=== PATIENT | female | born 1965 | race Caucasian/White ===

== ENCOUNTER 2023-09-05 16:15 | Outpatient (RCR) | payer OTHER, SELFPAY | END 2024-01-03 23:59 | disposition home or self-care (01) | PROVIDERS: Visit Provider Family Medicine | DX: M54.16 Radiculopathy, lumbar region (principal); S76.312A Strain of muscle, fascia and tendon of the posterior muscle group at thigh level, left thigh, initial encounter; Z51.89 Encounter for other specified aftercare | CPT/HCPCS: 97110; 97140; 97161 ==

== ENCOUNTER 2023-12-16 13:42 | Outpatient (CLI) | payer OTHER, SELFPAY ==
--- NOTE | 2023-12-16 14:00 | MM_ITS ---
Patient: YENIFER LAWRENCE Facility:?[facility] Patient ID:?[id number] Site Patient ID:?[id number]. Site :?[id number] Study:?XRay-Breast Bilateral 3D W/CAD-12/16/2023 2:07:28 PM Ordering Physician:Matti December Final Report: BILATERAL SCREENING MAMMOGRAM WITH COMPUTER-AIDED DETECTION AND TOMOSYNTHESIS TECHNIQUE: CC and MLO views were obtained. These mammographic images have been obtained using full-field digital technique. These mammographic images were interpreted with the benefit of computer-aided detection. Breast Tomosynthesis was used in this interpretation. COMPARISON FILM: 01/09/22, 06/20/20, 01/13/19. FINDINGS: The breasts are heterogeneously dense, which may obscure small masses IMPRESSION: There is no radiographic evidence for malignancy. ASSESSMENT: BI-RADS Category 1: Negative RECOMMENDATION: Routine screening mammogram in 1 year. A lay language report of this examination will be provided to the patient. Shahbaz Long M.D. Diagnostic Radiologist [email or web address] Transcribed: 11:18 [email or web address] casillas/Dictated by: Shahbaz Long MD @ 12/17/2023 9:05:00 AM Signed by:?Shahbaz Long MD @12/17/2023 12:07:23 PM (Electronic Signature)
== END 2023-12-16 13:43 | disposition home or self-care (01) ==
LOC: MAMMO 13:43
PROVIDERS: Visit Provider Physician Assistant
DX: Z12.31 Encounter for screening mammogram for malignant neoplasm of breast (principal); R92.2 Inconclusive mammogram
CPT/HCPCS: 77063; 77067

== ENCOUNTER 2024-04-06 07:30 | Outpatient (CLI) | payer OTHER, SELFPAY ==
--- OUTSIDE RECORDS SUMMARY | 2024-04-07 23:40 | XMS_ITS | Clinical Summary ---
Author Organization [facility] Address [place], [place] [address] Care Team Providers Care Fabric Worker Leader Name Role Phone FavianPatrica shaffer CHRISTOPHER Primary Care Provider +1- [phone] Allergies No known active allergies Medications Medication Sig Dispensed Refills Start Date End Date Status polyethylene glycol-electrolyte (GOLYTELY) 236-22.74-6.74 -5.86 gram suspensionIndication s:Encounter for screening colonoscopy Drink 3 liters (3/4 of bottle) the day before colonoscopy and 1 liter (remaining 1/4 of bottle) 6 hours prior to colonoscopy appointment. 4000 mL 03/07/2022 Active polyethylene glycol-electrolyte (GOLYTELY) 236-22.74-6.74 -5.86 gram suspensionIndication s:Adenomatous polyp of colon, unspecified part of colon Drink 2 liters the day before colonoscopy and 2 liters 6 hours before colonoscopy appointment 4000 mL 04/13/2024 Active Active Problems Problem Noted Date Diagnosed Date Adenomatous colon polyp 05/14/2017 Overview: Colonoscopy 04/2017 polyps repeat in 3 years Colonoscopy 06/2020 serrated adenoma tissue at the site of a previously resected polyp, recommend repeat colonoscopy in 6 months Encounters Date Type Department Care Team Description 02/06/2024 Telephone [facility] [address] [place] [address] Darell West MD Screening from Last 3 Months Social History Tobacco Use Types Packs/Day Years Used Date Smoking Tobacco: Never Smokeless Tobacco: Never Tobacco Cessation:Counseling Given: Yes Alcohol Use Standard Drinks/Week Comments Yes 2 (1 standard drink = 0.6 oz pur e alcohol) Social Connections Answer Date Recorded Frequency of Communication with Friends and Fami ly Not on file 09/16/2021 Financial Resource Strain Answer Date R ecorded Difficulty of Paying Living Expenses Not on file 09/16/2021 Difficulty of Paying Living Expenses Not on file 09/16/2021 Sex and Gender Information Value Date Recorded Sex Assigned at Not on file Gender Identity Not on file Sexual Orientation Not on file Obstetrics History Last Filed Vital Signs Vital Sign Reading Time Taken Comments Blood Pressure 130/67 04/06/2022 2:07 PM CDT Pulse 54 04/06/2022 2:07 PM CDT Temperature - - Respiratory Rate - - Oxygen Saturation 100% 04/06/2022 2:07 PM CDT Inhaled Oxygen Concentration - - Weight 61.8 kg (136 lb 3.2 oz) 04/06/2022 2:07 P M CDT Height - - Body Mass Index - - Plan of Treatment Upcoming Encounters Date Type Department Care Team (Late st Contact Info) Description 04/24/2024 6:30 AM CDT Office Visit [facility] [address] [place] [address] Darell West MD [address] [place] [address] Health Maintenance Due Date Last Done Comments Tdap 12/29/1974 Depression screening for age 12+ 1975 HIV for age 15-65 12/29/1978 BMI (ht and wt on same day) for age 18+ 12/29/1981 Hepatitis C screening for age 18-79 12/29/1981 Tetanus booster 1983 Lipids for age 45-75 12/29/2008 Mammogram for age 45-75 12/29/2008 Zoster (shingles) series for age 50+ (1 of 2) 12/29/2013 Colonoscopy through age 75 06/24/202106/24, 06/24/2020, 06/24/2020, Additional history exists COVID-19 vaccine series ( season) 2023 01/24/2022, 07/11/2021 Influenza for age 50-64 05/17/2024 Pap test for age 21-65 11/13/2025 3, 11/13/2022, 08/01/2017, Additional history exists Pneumococcal series for age 6-64 Aged Out No longer eligible based on patient's age to complete this topic Procedures Procedure Name Priority Date/Time Associated Diagnosis Comments HPV THIN PREP Routine 11/13/2022 12:00 PM BOOTH CLEANER COLONOSCOPY SCREENING Routine 06/24/2020 9:58 AM CDT History of colon polyps from Last 3 Months or Most Recently Relevant to Health Maintenance Results * HPV HIGH RISK (11/13/2022 12:00 PM BOOTH CLEANER) TYPE 16 Negative Negative 11/19/2022 11:14 AM BOOTH CLEANER [facility] [employer] [facility] TYPE 18 Negative Negative 11/19/2022 11:14 AM BOOTH CLEANER [facility] [employer] [facility] OTHER HIGH RISK TYPES Negative Negative 11/19/2022 11:14 AM BOOTH CLEANER [facility] [employer] [facility] Other (Cervical) 11/13/2022 12:00 PM BOOTH CLEANER 11/16/2022 8:32 AM BOOTH CLEANER Narrative [facility] [employer] [facility] - 11/19/2022 11:14 AM BOOTH CLEANER HPV types 16, 18, 31, 33, 35, 39, 45, 51, 52, 56, 58, 59, 66 and 68 DNA were undetectable or below the pre-set threshold. Methodology: Juanita Amy 4800 HPV Test December Kendra WHITE MICROBIOLOGY [facility] [employer] [facility] [address] [place] [address], * COLONOSCOPY SCREENING (06/24/2020 9:58 AM CDT) Darell West MD GI PROCEDURE ORD from Last 3 Months or Most Recently Relevant to Health Maintenance Care Teams Fabric Worker Leader Relationship Specialty Start Date End Date Kendra December Dax, CHRISTOPHER [address] [place] [address] PCP - General Physician Cold Press Loader 06/24/20
== END 2024-04-06 07:31 | disposition home or self-care (01) ==
LOC: NFLDREF 04-07 23:39
PROVIDERS: Visit Provider Physician Assistant
DX: E55.9 Vitamin D deficiency, unspecified (principal); Z13.6 Encounter for screening for cardiovascular disorders; Z13.1 Encounter for screening for diabetes mellitus
CPT/HCPCS: 80061; 82306; 82947

== ENCOUNTER 2024-04-24 06:21 | Outpatient (CLI) | payer OTHER, SELFPAY ==
--- OUTSIDE RECORDS SUMMARY | 2024-04-24 06:23 | XMS_ITS | Clinical Summary ---
Author Organization [facility] Address [place], [place] [address] Care Team Providers Care Mission Planner Name Role Phone FavianPatrica shaffer CHRISTOPHER Primary Care Provider +1- [phone] Allergies No known active allergies Medications Medication [...] Encounters Date Type Department Care Team Description 04/15/2024 Orders Only [facility] [address] [place] [address] Darell West MD <No scans attached> 02/06/2024 Telephone [facility] [address] [place] [address] Darell West MD Screening from Last 3 [...] Description 04/24/2024 6:30 AM CDT Office Visit [facility] [address] [place] [address] Darell West MD [address] [place] [address] Health Maintenance Due Date Last Done Comments [...] 06/24/2020, Additional history exists COVID-19 vaccine series (3 - 2023-24 season) 2023 01/24/2022, 07/11/2021 Influenza for age 50-64 05/17/2024 Pap test for age 21-65 11/13/2025 , 11/13/2022, 08/01/2017, Additional history exists Pneumococcal series for age 6-64 Aged Out No longer eligible based on patient's age to complete this topic Procedures Procedure Name Priority Date/Time Associated Diagnosis Comments HPV THIN PREP Routine 11/13/2022 12:00 PM ONLINE ADVERTISING ANALYST COLONOSCOPY SCREENING Routine 06/24/2020 9:58 AM CDT History of colon polyps from Last 3 Months or Most Recently Relevant to Health Maintenance Results * HPV HIGH RISK (11/13/2022 12:00 PM ONLINE ADVERTISING ANALYST) TYPE 16 Negative Negative 11/19/2022 11:14 AM ONLINE ADVERTISING ANALYST [facility] [facility] TYPE 18 Negative Negative 11/19/2022 11:14 AM ONLINE ADVERTISING ANALYST [facility] OTHER HIGH RISK TYPES Negative Negative 11/19/2022 11:14 AM ONLINE ADVERTISING ANALYST [facility] Other (Cervical) 11/13/2022 12:00 PM ONLINE ADVERTISING ANALYST 11/16/2022 8:32 AM ONLINE ADVERTISING ANALYST Narrative [facility] - 11/19/2022 11:14 AM ONLINE ADVERTISING ANALYST HPV types 16, 18, 31, 33, 35, 39, 45, 51, 52, 56, 58, 59, 66 and 68 DNA were undetectable or below the pre-set threshold. Methodology: Juanita Amy 4800 HPV Test December Kendra WHITE MICROBIOLOGY [facility] [address] [place] [address], * COLONOSCOPY SCREENING (06/24/2020 9:58 AM CDT) Darell West MD GI PROCEDURE ORD from Last 3 Months or Most Recently Relevant to Health Maintenance Care Teams Mission Planner Relationship Specialty Start Date End Date KendraDecember Dax, CHRISTOPHER [address] [place] [address] PCP - General Physician Research Chemist 06/24/20
--- NOTE | 2024-04-24 07:46 | W.ANESCHARGE ---
Anesthesia Charges Start Date/Time Anesthesia Start Date: 04/24/24 Anesthesia Start Time: 07:20 Stop Date/Time Anesthesia Stop Date: 04/24/24 Anesthesia Stop Time: 07:45
--- NOTE | 2024-04-24 08:08 | W.ANESCHARGE ---
Anesthesia Charges Start Date/Time Anesthesia Start Date: 04/24/24 Anesthesia Start Time: 07:20 Stop Date/Time Anesthesia Stop Date: 04/24/24 Anesthesia Stop Time: 07:45
== END 2024-04-24 06:22 | disposition home or self-care (01) ==
LOC: OP CLINIC 06:21
PROVIDERS: Visit Provider Internal Medicine Gastroenterology
DX: Z86.010 Personal history of colon polyps (principal); Z98.0 Intestinal bypass and anastomosis status
CPT/HCPCS: 00812; 45378; J2704

== ENCOUNTER 2025-01-21 15:07 | Outpatient (CLI) | payer OTHER, SELFPAY ==
--- NOTE | 2025-01-21 15:40 | CRLHL7_ITS ---
For Patients: As a result of the Century Cures Act, medical imaging exams and procedure reports are released immediately into your electronic medical record. You may view this report before your referring provider. If you have questions, please contact your health care provider. INDICATION: BILATERAL SCREENING MAMMOGRAM, ASYMPTOMATIC 59 Y/O FEMALE COMPARISON: 12/16/23, 01/09/22, 06/20/20 TECHNIQUE: CC and MLO views were obtained. These mammographic images have been obtained using full-field digital technique. These mammographic images were interpreted with the benefit of computer aided detection and tomosynthesis. BREAST COMPOSITION: The breasts are heterogeneously dense, which may obscure small masses. FINDINGS: No suspicious findings. ASSESSMENT: BI-RADS 1 Negative RECOMMENDATION: Annual screening mammogram. A lay language report of this examination will be provided to the patient. Dictated by: Shahbaz Long MD @ 01/22/2025 08:50:24 (Electronically Signed)
== END 2025-01-21 15:08 | disposition home or self-care (01) ==
LOC: MAMMO 15:08
PROVIDERS: Visit Provider Physician Assistant
DX: Z12.31 Encounter for screening mammogram for malignant neoplasm of breast (principal); R92.333 Mammographic heterogeneous density, bilateral breasts
CPT/HCPCS: 77063; 77067